=== PATIENT | female | born 1980 | race African-American/Black ===

== ENCOUNTER 2017-01-28 03:56 | Observation (INO) ==
[2017-01-28 04:29] LABS: Barbiturates Screen,Urine Negative (Negative); Benzodiazepines Screen,Urine Negative (Negative); Cannabinoid Screen,Urine Positive (Negative); Opiate Screen,Urine Negative (Negative); Phencyclidine Screen,Urine Negative (Negative)
[2017-01-28] MEDS ORDERED: LACTATED RINGERS 1,000 ML IV SCH ×2 (04:30)
--- NOTE | 2017-01-28 04:36 | EKG Report ---
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
[2017-01-28 04:38] LABS: Amorphous Crystals,Urine Few /HPF (Few); Apearance,Urine Slightly Hazy (Clear); Bacteria,Urine Occasional /HPF (Few); Bilirubin,Urine Negative (Negative); Blood, Urine Small mg/dL (Negative); Glucose,Urine (UA) Negative (Negative); Ketones,Urine Negative (Negative); Mucus,Urine Occasional /LPF (Occasional); Nitrite,Urine Negative (Negative); Protein,Urine Negative; RBC,Urine 1 /HPF (0-4); Squamous Epithelial Cell,Urine Occasional /HPF (0-10); Urine Color Yellow (Yellow); Urine Specific Gravity 1.013 (1.001-1.035); Urine Urobilinogen < 2.0 EU/DL (0.2-1.0); WBC,Urine 1 /HPF (0-6)
[2017-01-28] MEDS ORDERED: METOPROLOL TARTRATE 25 MG TABLET PO SCH (04:47)
--- NOTE | 2017-01-28 04:53 | Hospitalist Consult Note ---
"Assessment and Plan (1) Sinus tachycardia Status: Acute Assessment and plan: pt has sinus tachycardia with systolic HTN, will add lopressor 12.5 mg po bid, will get cbc\\cmp\\TSH ;level, also get echo in am pt is 32 week , OB care as per OB|[employer] we will contiune to follow Current Visit: Yes History of Present Illness - Data of Consult Consult date: 01/28/17 - Consult Narrative Reason for consult: tacycardia History of present illness: Ms. Jaime is a 36 year old female , 32 weeks , admitted in [facility] [employer] [facility] service for monitoring , pt complaint palpitation, acc to nurses had tachycardia with rate from 100 to 180, no chest pain no sob no hx of any cardiac problem, + marijuana use , i saw the patient denies any complaint comfortable 12 lead ekg show sinus tacycardia with rate of 100 BP 150\\70 , 02 sat 99% , i told them to start low dose lopressor 12.5 mg po bid and get labs cbc\\cmp and tsh level also schedule echo in am CC: Alisha Vick, DO - Home Medications and Allergies Home Medications: Home Medications Medication Instructions Recorded Confirmed Type Pnv95/Ferrous Fumarate/FA 1 each PO DAILY 11/25/16 01/28/17 History [ Tablet] Allergies/Adverse Reactions: Allergies Allergy/AdvReac Type Severity Reaction Status Date / Time No Known Allergies Allergy Unverified 11/02/16 09:19 Medical,Surgical,& Family Hx - Medical History Neurology: No history of: Migraine - Social History Smoking Status: Never smoker Exam - Constitutional Vitals: vitals stable HR 100 BP 150\\70 02 sat 99% heent, pearle neck, supple. chest clear cvs, s1 s2. 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
[2017-01-28 06:19] LABS: Basophils % 0.1 % (0.0-0.8); Eosinophils # 0.3 10*3/uL (0.0-0.87); Eosinophils % 3.8 % (0.00-10.9); Hemoglobin 9.5 GM/DL (12.0-16.0); Immature Granulocytes % 1.3 %; Immature Granulocytes Absolute 0.11 #; Lymphocytes # 1.9 10*3/uL (1.4-4.0); Lymphocytes % 21.7 % (21.3-54.2); Mean Corpuscular HGB Conc 32.8 GM/DL (32-36); Mean Corpuscular Hemoglobin 30 PG (27-34); Mean Corpuscular Volume 90.6 FL (87-102); Mean Platelet Volume 10.1 FL (9.6-12.0); Monocytes # 0.8 10*3/uL (0.11-0.8); Monocytes % 8.7 % (1.7-12.7); Neutrophils # 5.6 10*3/uL (1.4-7.4); Neutrophils % 64.4 % (38.7-73.9); Platelet Count 246 T/CUMM (130-400); Red Cell Distribution Width 13.9 % (9.3-17.3); White Blood Count 8.7 T/CUMM (4-12)
[2017-01-28 06:49] LABS: Alanine Aminotransferase 20 U/L (13-56); Albumin 2.5 G/DL (3.4-5.0); Alkaline Phosphatase 99 U/L (45-117); Aspartate Amino Transferase 18 U/L (0-37); Bilirubin,Total < 0.39 MG/DL (0.2-1.0); Blood Urea Nitrogen 14 MG/DL (7-18); Calcium 9.1 MG/DL (8.5-10.1); Glucose 118 MG/DL (74-106); Osmolality,Calculated 293.4 MOS/KG (273-304); Potassium 3.8 MMOL/L (3.5-5.1); Sodium 147 MMOL/L (136-145); Total Protein 5.4 G/DL (6.4-8.3)
[2017-01-28 07:05] LABS: Free T4 (Free Thyroxine) 0.9 NG/DL (0.76-1.46); Thyroid Stimulating Hormone 1.41 uIU/ml (0.358-3.74)
--- NOTE | 2017-01-28 09:03 | OB/GYN Progress Note ---
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 She is 32.5 weeks gestation today. She presented last night with complaint of report racing. She denies any alcohol use, caffeine use, or smoking cigarettes. Patient be admitted to smoking marijuana. She was seen by the hospitalist and placed on Lopressor 12.5 mg during the night and was Lopressor was failed this morning. She has had a 12-lead EKG, and she is presently receiving a cardiac echo. She denies any vaginal bleeding, decreased movement, pelvic pain, spontaneous rupture of membranes, contractions, or pressure. O: Urine drug screen positive for marijuana A: IUP at 32.5 weeks gestation, history of sinus tachycardia, history of marijuana use, category 1 heart rate tracing, P: Continue with electronic monitoring. Continue present management plan as established by the hospitalist. Strongly encouraged to stop using marijuana referred to Narcotics Anonymous and questions answered to desire level satisfaction. They do kick counts, labor, and bleeding precautions discussed. 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 General appearance: no acute distress - Antepartum / Post Antpartum Exam Cervix -Dilatation: Deferred secondary to no contractures noted on the monitor strip Heart Rate: 140s to 150s with spontaneous accelerations [place]: No contractions noted Abdomen obstetrics: Present: bowel sounds normal Uterus exam: Present: enlarged (soft, gravid, nontender to touch) - Head Head exam: Present: normal inspection - Eye Eye exam: Present: EOMI - Neck Neck exam: Present: normal inspection - Respiratory Respiratory exam: Present: clear to auscultation bilaterally - GI/Abdominal GI/Abdominal exam: Present: normal bowel sounds - Extremities Exam Extremities exam: Present: normal inspection, normal capillary refill, full ROM - Back Exam Back exam: Present: normal inspection - Neurological Exam Neurological exam: Present: alert, oriented X3 - Psychiatric Psychiatric exam: Present: normal affect, normal mood - Skin Skin exam: Present: normal color, warm, dry Results - Labs CBC & BMP: 01/28/17 06:11 01/28/17 06:11
--- NOTE | 2017-01-28 12:08 | ECHO Report ---
Ashly Jaime Exam Date: 01/28/2017 09:11 Referring Physician: Technologist: Zabrina PRINCE Age: 36 Ht (in): Wt (lb): Gender: F Exam Location: [facility] Echo Indications: Tachycardia, BP: / HR: Rhythm: Sinus Technical Quality: IMPRESSIONS Normal left ventricular size and systolic function, left ventricular ejection fraction is estimated at 60 %. The diastolic parameters are normal. There is mild tricuspid insufficiency with RVSP estimated to be 21mmHg plus the right atrial pressure. MEASUREMENTS (Male / Female) Normal Values 2D ECHO LV Diastolic Diameter PLAX 3.6 cm 4.2 - 5.9 / 3.9 - 5.3 cm LV Systolic Diameter PLAX 2.7 cm LV Fractional Shortening PLAX 24.7 % IVS Diastolic Thickness 1.3 cm 0.6 - 1.0 / 0.6 - 0.9 cm LVPW Diastolic Thickness 1.3 cm 0.6 - 1.0 / 0.6 - 0.9 cm RV Internal Dim ED PLAX 2.2 cm Aortic Root Diameter 2.5 cm LA Systolic Diameter LX 3.3 cm 3.0 - 4.0 / 2.7 - 3.8 cm DOPPLER TR Peak Velocity 231.0 cm/s TR Peak Gradient 21.3 mmHg FINDINGS Left Ventricle Normal left ventricular size and systolic function, left ventricular ejection fraction is estimated at 60 %. The diastolic parameters are normal. Right Ventricle Normal right ventricular size. Right Atrium Normal right atrial size. Left Atrium Normal left atrial size. Mitral Valve Mild mitral valve sclerosis. Aortic Valve The aortic valve is trileaflet, delicate and has normal motion. Tricuspid Valve Morphologically normal tricuspid valve. Mild tricuspid valve regurgitation. Tricuspid regurgitation velocities suggest a RVSP of 21 mmHg + RAP. Pulmonic Valve Morphologically normal pulmonic valve. Trace pulmonary valve regurgitation. Pericardium No pericardial effusion. Aorta Normal size aortic root and proximal ascending aorta. Laura Garcia (Electronically Signed) Final Date: 28 January 2017 12:07
== END 2017-01-28 12:57 | disposition home or self-care (01) ==
LOC: N.LD
PROVIDERS: ADMIT Obstetrics & Gynecology; ATTEND Obstetrics & Gynecology